=== PATIENT | male | born 1940 | race Caucasian/White ===

== ENCOUNTER → 2017-01-08 | Outpatient (CLI) | payer MEDICARE, OTHER ==
--- NOTE | 2017-01-08 13:31 | PCVCIMAG ---
EXAM: BILATERAL CAROTID DUPLEX INDICATION: Carotid Occlusive Disease. FINDINGS: Doppler Measurements (centimeters per second): RIGHT: Peak CCA-59, Peak ECA-88, Diastolic ICA-11, Peak ICA-51, ICA/CCA Ratio-0.9. LEFT: Peak CCA-72, Peak ECA-83, Diastolic ICA-12, Peak ICA-49, ICA/CCA Ratio-0.7. RIGHT CAROTID: The carotid bulb has mild plaque. The proximal internal carotid artery shows <40% stenosis. The common carotid artery shows no significant stenosis. The external carotid artery shows no significant stenosis. LEFT CAROTID: The carotid bulb has mild plaque. The proximal internal carotid artery shows <40% stenosis. The common carotid artery shows no significant stenosis. The external carotid artery shows no significant stenosis. Antegrade flow in both vertebral arteries. IMPRESSION: <40% stenosis of the right internal carotid artery with mild plaque. <40% stenosis of the left internal carotid artery with mild plaque. LOC:[id number]
== END | disposition home or self-care (01) ==
LOC: PCVCIMAG 12:43
PROVIDERS: ATTEND Internal Medicine Cardiovascular Disease
DX: Z01.810 Encounter for preprocedural cardiovascular examination (principal); I65.23 Occlusion and stenosis of bilateral carotid arteries; I25.10 Atherosclerotic heart disease of native coronary artery without angina pectoris; I10 Essential (primary) hypertension; I35.0 Nonrheumatic aortic (valve) stenosis; E78.00 Pure hypercholesterolemia, unspecified; Z95.1 Presence of aortocoronary bypass graft
CPT/HCPCS: 93880

== ENCOUNTER → 2017-10-16 | Outpatient (CLI) | payer MEDICARE, OTHER | END | disposition home or self-care (01) | LOC: PCVCCLINIC 11:17 | DX: I48.91 Unspecified atrial fibrillation (principal); I25.10 Atherosclerotic heart disease of native coronary artery without angina pectoris; I10 Essential (primary) hypertension; E78.00 Pure hypercholesterolemia, unspecified | CPT/HCPCS: 36415 ==

== ENCOUNTER → 2018-05-14 | Outpatient (CLI) | payer MEDICARE, OTHER ==
--- NOTE | 2018-05-14 18:05 | PCVCIMAG ---
EXAM: BILATERAL RENAL ULTRASOUND AND BILATERAL RENAL DUPLEX INDICATION: Hypertension FINDINGS: Right kidney: Length measures 11.9 cm. No hydronephrosis or extensive renal scarring. Right renal duplex: Adequate technical quality. No sonographic evidence of renal artery stenosis. The aortic to renal artery ratio is 1.3. The renal vein is patent. Left kidney: Length measures 11.7 cm. No hydronephrosis or extensive renal scarring. Several benign cysts in the kidneys the largest measures 2.0 cm in the midportion. Left renal duplex: Adequate technical quality. No sonographic evidence of renal artery stenosis. The aortic to renal artery ratio is 1.4. The renal vein is patent. Bladder: No obvious abnormalities. IMPRESSION: No significant renal artery stenosis. No hydronephrosis bilaterally. Incidental note is made of ectasia of the infrarenal abdominal aorta measuring up to 2.6 cm in greatest dimension. LOC:[id number]
== END | disposition home or self-care (01) ==
LOC: PCVCIMAG 11:06
PROVIDERS: ATTEND Internal Medicine Cardiovascular Disease
DX: I25.119 Atherosclerotic heart disease of native coronary artery with unspecified angina pectoris (principal); R60.9 Edema, unspecified; R94.31 Abnormal electrocardiogram [ECG] [EKG]; E78.00 Pure hypercholesterolemia, unspecified; I10 Essential (primary) hypertension; E11.9 Type 2 diabetes mellitus without complications; I48.0 Paroxysmal atrial fibrillation; K21.9 Gastro-esophageal reflux disease without esophagitis; E78.5 Hyperlipidemia, unspecified; Z95.1 Presence of aortocoronary bypass graft; Z98.890 Other specified postprocedural states; Z79.82 Long term (current) use of aspirin; Z79.899 Other long term (current) drug therapy
CPT/HCPCS: 36415; 76770; 93005; 93975; G0463

== ENCOUNTER → 2018-06-11 | Outpatient (CLI) | payer MEDICARE, OTHER | END | disposition home or self-care (01) | LOC: PCVCCLINIC 14:52 | PROVIDERS: ATTEND Internal Medicine Cardiovascular Disease | DX: I25.118 Atherosclerotic heart disease of native coronary artery with other forms of angina pectoris (principal); I11.0 Hypertensive heart disease with heart failure; I50.9 Heart failure, unspecified; E11.42 Type 2 diabetes mellitus with diabetic polyneuropathy; R60.9 Edema, unspecified; I48.91 Unspecified atrial fibrillation; K21.9 Gastro-esophageal reflux disease without esophagitis; E78.5 Hyperlipidemia, unspecified; Z88.0 Allergy status to penicillin; Z88.8 Allergy status to other drugs, medicaments and biological substances; Z79.82 Long term (current) use of aspirin; Z79.4 Long term (current) use of insulin | CPT/HCPCS: 93005; G0463 ==

== ENCOUNTER → 2018-06-17 | Outpatient (CLI) | payer MEDICARE, OTHER | END | disposition home or self-care (01) | LOC: PCVCCLINIC 11:38 | PROVIDERS: ATTEND Internal Medicine Cardiovascular Disease | DX: I25.118 Atherosclerotic heart disease of native coronary artery with other forms of angina pectoris (principal); I11.0 Hypertensive heart disease with heart failure; I50.9 Heart failure, unspecified; Z79.82 Long term (current) use of aspirin; Z79.4 Long term (current) use of insulin; Z88.0 Allergy status to penicillin | CPT/HCPCS: 36415 ==

== ENCOUNTER → 2018-07-02 | Outpatient (CLI) | payer MEDICARE, OTHER ==
--- NOTE | 2018-07-02 14:49 | PCVCIMAG ---
APPROVED REPORT Study performed: 07/02/2018 13:21:35 EXAM: Comprehensive 2D, Doppler, and color-flow Echocardiogram Patient Location: Echo lab Room #: 2Status: routine BSA: 2.18 HR: 64 bpmBP: 116/56 mmHg Rhythm: NSR Other Information Study Quality: Good Risk Factors: Cardiac Risk Factors: DM Indications Aortic Valve Disease Atrial Fibrillation CAD S/P Ao Valve replacement #23 bioprosthetic, S/P CABG, stents 2D Dimensions IVSd: 10.94 (7-11mm)LVOT Diam: 22.67 (18-24mm) LVDd: 55.96 mm PWd: 11.67 (7-11mm)Ascending Ao: 35.39 (22-36mm) LVDs: 30.36 (25-40mm) Left Atrium: 55.36 (27-40mm) Aortic Root: 28.28 mm LV Single Plane 4CH: 49.46 % LV Single Plane 2CH: 59.44 % Biplane EF: 60.1 % Volumes Left Atrial Volume (Systole) Single Plane 4CH: 109.89 mLSingle Plane 2CH: 72.91 mL Biplane LA Volume: 91.00 mLLA ESV Index: 42.00 mL/m2 Aortic Valve AoV Peak Demond.: 3.10 m/s AO Peak Gr.: 29.61 mmHgLVOT Max P.59 mmHg AO Mean Gr.: 21.08 mmHg AO V2 Mean: 2.19 m/sLVOT Max V: 1.03 m/s AO V2 VTI: 61.77 cm MARI Vmax: 1.33 cm2 Mitral Valve MV E Max Demond.: 1.03 m/s MV PHT: 39.70 ms MVA (PHT): 5.54 cm2 IVRT: 62.28 ms TDI E/Lateral E': 8.58E/Medial E': 17.17 Medial E' Demond.: 0.06 m/s Lateral E' Demond.: 0.12 m/s Pulmonary Valve PV Peak Demond.: 1.63 m/sPV Peak Gr.: 10.61 mmHg Tricuspid Valve TR Peak Demond.: 2.95 m/s TR Peak Gr.: 34.77 mmHg TV Vmax: 0.66 m/sPA Pressure: 42.00 mmHg Left Ventricle The left ventricle is normal size. There is normal LV segmental wall motion. Mild concentric left ventricular hypertrophy. Left ventricular systolic function is normal. The left ventricular ejection fraction is within the normal range. LVEF is 55-60%. This study is not technically sufficient to allow evaluation of the LV diastolic function due to atrial fibrillation. Right Ventricle The right ventricle is normal size. The right ventricular systolic function is normal. Atria Left atrium is moderately dilated. The right atrium size is normal. Aortic Valve A normally functioning #23 bioprosthetic valve is seen in the aortic position. No aortic regurgitation is present. There is no aortic valvular stenosis. Mitral Valve The mitral valve is normal in structure. There is no mitral valve regurgitation noted. No evidence of mitral valve stenosis. Tricuspid Valve The tricuspid valve is normal in structure. Mild tricuspid regurgitation with a PA preassureof 42 mmHg. Moderate pulmonary hypertension. Pulmonic Valve The pulmonary valve is normal in structure. There is no pulmonic valvular regurgitation. Great Vessels The aortic root is normal in size. The ascending aorta is normal in size. Aortic arch is normal in caliber. IVC is normal in size and collapses >50% with inspiration. Pericardium There is no pericardial effusion. There is no pleural effusion. <Conclusion> The left ventricle is normal size. Mild concentric left ventricular hypertrophy. Left ventricular systolic function is normal. The right ventricle is normal size. Left atrium is moderately dilated. A normally functioning #23 bioprosthetic valve is seen in the aortic position. The mitral valve is normal in structure. Mild tricuspid regurgitation with a PA preassureof 42 mmHg. Moderate pulmonary hypertension.
== END | disposition home or self-care (01) ==
LOC: PCVCIMAG 13:25
PROVIDERS: ATTEND Internal Medicine Cardiovascular Disease
DX: I07.1 Rheumatic tricuspid insufficiency (principal); I25.10 Atherosclerotic heart disease of native coronary artery without angina pectoris; I11.0 Hypertensive heart disease with heart failure; I50.32 Chronic diastolic (congestive) heart failure; E78.00 Pure hypercholesterolemia, unspecified; R60.0 Localized edema; K21.9 Gastro-esophageal reflux disease without esophagitis; Z79.82 Long term (current) use of aspirin; Z79.899 Other long term (current) drug therapy; Z79.4 Long term (current) use of insulin
CPT/HCPCS: 93005; 93306; G0463

== ENCOUNTER → 2018-07-21 | Outpatient (CLI) | payer MEDICARE, OTHER | END | disposition home or self-care (01) | LOC: PCVCCLINIC 11:34 | PROVIDERS: ATTEND Internal Medicine Cardiovascular Disease | DX: I25.10 Atherosclerotic heart disease of native coronary artery without angina pectoris (principal); I11.0 Hypertensive heart disease with heart failure; I50.32 Chronic diastolic (congestive) heart failure; E78.00 Pure hypercholesterolemia, unspecified; Z79.82 Long term (current) use of aspirin; Z79.899 Other long term (current) drug therapy; Z79.84 Long term (current) use of oral hypoglycemic drugs | CPT/HCPCS: 36415; 80061 ==

== ENCOUNTER → 2018-10-01 | Outpatient (CLI) | payer MEDICARE, OTHER | END | disposition home or self-care (01) | LOC: PCVCCLINIC 15:24 | PROVIDERS: ATTEND Internal Medicine Cardiovascular Disease | DX: I25.119 Atherosclerotic heart disease of native coronary artery with unspecified angina pectoris (principal); I10 Essential (primary) hypertension; E78.00 Pure hypercholesterolemia, unspecified; Z88.0 Allergy status to penicillin | CPT/HCPCS: 93005; G0463 ==

== ENCOUNTER → 2018-10-20 | Outpatient (CLI) | payer MEDICARE, OTHER | END | disposition home or self-care (01) | LOC: PCVCCLINIC 14:20 | PROVIDERS: ATTEND Internal Medicine Cardiovascular Disease | DX: I25.119 Atherosclerotic heart disease of native coronary artery with unspecified angina pectoris (principal); R07.9 Chest pain, unspecified; I48.91 Unspecified atrial fibrillation; E78.00 Pure hypercholesterolemia, unspecified; I11.0 Hypertensive heart disease with heart failure; I50.9 Heart failure, unspecified; K21.9 Gastro-esophageal reflux disease without esophagitis; Z88.0 Allergy status to penicillin; Z91.048 Other nonmedicinal substance allergy status; Z79.899 Other long term (current) drug therapy; Z79.84 Long term (current) use of oral hypoglycemic drugs; Z79.82 Long term (current) use of aspirin | CPT/HCPCS: 93005; G0463 ==

== ENCOUNTER → 2018-11-12 | Outpatient (CLI) | payer MEDICARE, OTHER | END | disposition home or self-care (01) | LOC: PCVCCLINIC 14:50 | PROVIDERS: ATTEND Internal Medicine Cardiovascular Disease | DX: I06.0 Rheumatic aortic stenosis (principal); I48.91 Unspecified atrial fibrillation; I65.23 Occlusion and stenosis of bilateral carotid arteries; I10 Essential (primary) hypertension; E78.00 Pure hypercholesterolemia, unspecified; Z88.0 Allergy status to penicillin; K21.9 Gastro-esophageal reflux disease without esophagitis; Z91.048 Other nonmedicinal substance allergy status | CPT/HCPCS: 93005; G0463 ==

== ENCOUNTER → 2018-12-21 | Outpatient (CLI) | payer MEDICARE, OTHER ==
--- NOTE | 2018-12-21 14:57 | PCVCIMAG ---
APPROVED REPORT Study performed: 12/21/2018 13:39:40 EXAM: Comprehensive 2D, Doppler, and color-flow Echocardiogram Patient Location: Echo lab Status: routine BSA: 2.09 HR: 71 bpmBP: 122/56 mmHg Rhythm: Atrial Fibrillation Other Information Study Quality: Adequate Indications Diabetes Dyspnea CAD #23 Edward bovine pericardial bioprosthetic aortic valve 2D Dimensions IVSd: 17.06 (7-11mm)LVOT Diam: 22.99 (18-24mm) LVDd: 45.62 mm PWd: 17.13 (7-11mm)Ascending Ao: 37.30 (22-36mm) LVDs: 31.34 (25-40mm) Left Atrium: 55.83 (27-40mm) Aortic Root: 36.44 mm LV Single Plane 4CH: 50.83 % LV Single Plane 2CH: 45.83 % Biplane EF: 48.8 % Volumes Left Atrial Volume (Systole) Single Plane 4CH: 109.31 mLSingle Plane 2CH: 115.17 mL LA ESV Index: 54.00 mL/m2 Aortic Valve AoV Peak Demond.: 3.12 m/s AO Peak Gr.: 38.89 mmHgLVOT Max P.55 mmHg AO Mean Gr.: 18.37 mmHgLVOT Mean P.28 mmHg AO V2 Mean: 1.99 m/sLVOT Max V: 1.23 m/s AO V2 VTI: 67.68 cmLVOT Mean V: 0.85 m/s MARI (VTI): 1.67 [id number] V1 VTI: 27.24 cm MARI Vmax: 1.64 cm2 SV (LVOT): 113.02 mL Pulmonary Valve PV Peak Demond.: 1.56 m/sPV Peak Gr.: 9.75 mmHg Tricuspid Valve TR Peak Demond.: 3.20 m/s TR Peak Gr.: 40.92 mmHg Left Ventricle The left ventricle is normal size. There is normal LV segmental wall motion. Moderate concentric left ventricular hypertrophy. The left ventricular systolic function is normal. The left ventricular ejection fraction is within the lower limits of normal range. LVEF is 50%. This study is not technically sufficient to allow evaluation of the LV diastolic function due to atrial fibrillation. Right Ventricle The right ventricle is normal size. The right ventricular systolic function is normal. Atria Left atrium is severely dilated. Right atrium is severely dilated. Aortic Valve Normally functioning #23 Gaines bovine pericardial bioprosthesis. No aortic regurgitation is present. There is no aortic valvular stenosis. Mitral Valve The mitral valve is normal in structure. Mild mitral regurgitation. No evidence of mitral valve stenosis. Tricuspid Valve The tricuspid valve is normal in structure. Mild to moderate tricuspid regurgitation with PAP of 48 mmHg. Pulmonic Valve The pulmonary valve is normal in structure. Mild pulmonic regurgitation. Great Vessels The aortic root is normal in size. IVC is normal in size and collapses >50% with inspiration. Pericardium There is no pericardial effusion. There is no pleural effusion. <Conclusion> The left ventricle is normal size. Moderate concentric left ventricular hypertrophy. The left ventricular systolic function is normal. The right ventricle is normal size. Left atrium is severely dilated. Right atrium is severely dilated. Normally functioning #23 Gaines bovine pericardial bioprosthesis. Mild mitral regurgitation. Mild to moderate tricuspid regurgitation with PAP of 48 mmHg.
== END | disposition home or self-care (01) ==
LOC: PCVCIMAG 13:38
PROVIDERS: ATTEND Internal Medicine Cardiovascular Disease
DX: I08.8 Other rheumatic multiple valve diseases (principal); E10.9 Type 1 diabetes mellitus without complications; R06.00 Dyspnea, unspecified; I10 Essential (primary) hypertension; E78.5 Hyperlipidemia, unspecified; Z95.2 Presence of prosthetic heart valve
CPT/HCPCS: 93005; 93306; G0463

== ENCOUNTER → 2019-01-18 | Outpatient (CLI) | payer MEDICARE, OTHER ==
[~2019-01-18] MED LIST: REGADENOSON 0.4 MG/5 ML DISP.SYRIN. IV ONE
--- NOTE | 2019-01-18 13:23 | PCVCIMAG ---
APPROVED REPORT Imaging Protocol: Rest Tc-99m/Stress Tc-99m 1 day Study performed: 01/18/2019 10:23:03 Indication: CAD, Afib Patient Location: Out-Patient Stress Nurse: Luann Gill RN, CHANA Zamorano Tech:Jeronimo Garnett NMKANE Ht: 5 ft 11 in Wt: 195 lbs BSA: 2.09 m2 HR: 71 bpm BP: 163/77 mmHg BMI: 27.19 Rhythm: Afib Medical History Medical History: Age, Hyperlipidemia, HTN, DM Insulin, Afib, CHF, Aortic Stenosis Medications: Amlodipine, ASA, Atrovastatin, Coreg, Plavix, Insuline, Imdur, Benicar, Ranexa, Demadex Allergies: PCN, Tape, Valdecoxib Previous Cardiac Procedures: CABG, PCI Pretest Chest Pain Characteristics: No chest pain Meds Held (24 hrs): Coreg, Imdur Resting Data Rest SPECT myocardial perfusion imaging was performed in supine position 45 minutes following the intravenous injection of 10.6 mCi of Tc-99m Sestamibi. Time of rest injection: 1005 Date: 01/18/2019 Administration Route: IV Administration Site: Right Hand Pharmacologic Stress Pharmacologic stress test was performed by injecting Regadenoson 0.4 mg IV push over 10-15 seconds immediately followed by the intravenous injection of 35.9 mCi of Tc-99m Sestamibi. Time of stress injection: 1135 Date: 01/18/2019 Administration Route: IV Administration Site: Right Hand Gated Stress SPECT was performed 45 minutes after stress injection. The images were gated to evaluate regional wall motion and calculate left ventricular ejection fraction. Stress Test Details Stress Test: Pharmacologic stress testing performed using 0.4 mg of regadenoson per 5 mL given IV over 10 seconds. Reason for pharmacologic stress test: Gait instability. HRMax Heart Rate (APMHR): 142 bpm Resting HR: 71 bpmTarget HR (85% APMHR): 120 bpm Max HR Achieved: 105 bpm % of APMHR: 73 Recovery HR: 76 bpm BP Resting BP: 163/77 mmHg Max BP: 141/61 mmHg Recovery BP: 164/70 mmHg ECG Resting ECG: Afib Stress ECG: Afib ST Change: Nondiagnostic resting ST abnormalities Arrhythmia: PVC's Recovery ECG: Afib Clinical Reason for Termination: Completed protocol Stress Symptoms: Chest tightness, Yawning Exercise duration: min 55 sec Symptoms resolved with caffeine. Study Data Post stress, the left ventricular ejection was 59%.. SSS: 7 SRS: 2 SDS: 6 TID = 1.05. Perfusion There is a medium area of moderately reduced uptake in the basal and mid segment of the inferior wall which is seen on the stress images and improves on the resting images. This area is hypokinetic and is most consistent with mixed infarct and ischemia. Wall Motion There is hypokinesis of the mid to basal inferior wall. Nuclear Conclusion ECG Findings: non-diagnostic Clinical Findings: non-diagnostic Nuclear Findings: positive for infarct and ischemia Exercise Capacity: not assessed Left Ventricular Function: normal There is an incomplete infarct in the inferior wall with mild to moderate enry-infarct ischemia. There is normal LV systolic function, with hypokinesis of the mid to basal inferior wall.
== END | disposition home or self-care (01) ==
LOC: PCVCIMAG 09:42
PROVIDERS: ATTEND Internal Medicine Cardiovascular Disease
DX: I25.118 Atherosclerotic heart disease of native coronary artery with other forms of angina pectoris (principal); I48.91 Unspecified atrial fibrillation; I10 Essential (primary) hypertension; E78.00 Pure hypercholesterolemia, unspecified; M62.20 Nontraumatic ischemic infarction of muscle, unspecified site; Z79.82 Long term (current) use of aspirin
CPT/HCPCS: 78452; 93017; A9500; J2785; G0463

== ENCOUNTER → 2019-02-28 | Outpatient (CLI) | payer MEDICARE, OTHER ==
--- NOTE | 2019-02-28 13:25 | PCVCIMAG ---
EXAM: DUPLEX ULTRASOUND OF THE LEFT GROIN INDICATION: Groin swelling and pain. FINDINGS: No pseudoaneurysm is present. The common femoral artery and vein are patent. No arteriovenous fistula is seen. IMPRESSION: Study is negative for pseudoaneurysm. Incidental note is made of a 1.8 x 2.6 x 3.9 cm subcutaneous hematoma in the left groin. LOC:[id number]
== END | disposition home or self-care (01) ==
LOC: PCVCIMAG 12:14
PROVIDERS: ATTEND Internal Medicine Cardiovascular Disease
DX: M79.605 Pain in left leg (principal); R19.09 Other intra-abdominal and pelvic swelling, mass and lump
CPT/HCPCS: 93926